=== PATIENT | female | born 1970 | race Caucasian/White ===

== ENCOUNTER 2017-03-29 11:43 | Inpatient (IN) | payer OTHER ==
[~2017-03-29] VITALS: Ht 177.8 cm; Wt 113.1 kg
[2017-03-29 13:41] LABS: HEMATOCRIT 42.2 % (36.0-46.0); MCH 30.2 PG (29.0-34.0); MCHC 32.9 G/DL (30.0-36.0); MCV 91.5 FL (83-99); MEAN PLAT.VOLUME 11.6 uM^3 (9.5-12.4); PLATELET COUNT 178 K/uL (156-360); RBC DIS.WIDTH-CV 13.9 % (11.8-14.6); RBC DIS.WIDTH-SD 46.9 % (39-53); RED BLOOD COUNT 4.61 M/uL (3.80-5.20); WHITE BLOOD COUNT 12.7 K/uL (4.1-10.2)
[2017-03-29 13:43] LABS: ADD MIUA? YES; BILIRUBIN NEGATIVE; BLOOD MODERATE; COLOR STRAW ((YELLOW)); GLUCOSE (STRIP) NEGATIVE; KETONES NEGATIVE; LEUKOCYTES NEGATIVE; NITRITE NEGATIVE; PROTEIN (STRIP) NEGATIVE; SPECIFIC GRAVITY 1.006 (1.000-1.030); UROBILINOGEN 0.2 MG/DL (0.2-1.0)
[2017-03-29 13:51] LABS: BACTERIA NONE SEEN /HPF; EPITHELIAL CELLS 1+ /HPF; MUCUS TRACE /LPF; RED BLOOD CELLS 0-5 /HPF (0-5); WHITE BLOOD CELLS 0-5 /HPF (0-5)
[2017-03-29 13:51] LABS: AMPHETAMINE NEGATIVE (500 ng/mL); BARBITURATES NEGATIVE (200 ng/mL); BENZODIAZEPINES NEGATIVE (150 ng/mL); COCAINE NEGATIVE (150 ng/mL); INTERNAL CONTROLS VALID? YES; METHADONE NEGATIVE (200 ng/mL); METHAMPHETAMINE NEGATIVE (500 ng/mL); OPIATES (MORPHINE) NEGATIVE (100 ng/mL); OXYCODONE NEGATIVE (100 ng/mL); PHENCYCLIDINE NEGATIVE (25 ng/mL); PROPOXYPHENE NEGATIVE (300 ng/mL); THC CANNABINOIDS NEGATIVE (50 ng/mL); TRICYCLIC ANTIDEPRESSANTS NEGATIVE (300 ng/mL)
[2017-03-29 13:55] LABS: CHLORIDE 111 mEq/L (99-109); POTASSIUM 4.3 mEq/L (3.7-5.4); SODIUM 142 mEq/L (136-147)
[2017-03-29 13:57] LABS: GLUCOSE 87 mg/dL (70-99)
[2017-03-29 13:58] LABS: ANION GAP 9 MEQ/L (2-14)
[2017-03-29 13:59] LABS: TOTAL BILIRUBIN 0.3 mg/dL (0.0-1.0)
[2017-03-29 14:00] LABS: ALKALINE PHOSPHATASE 42 IU/L (3-129); SERUM ETHYL ALCOHOL < 10 mg/dL
[2017-03-29 14:01] LABS: GFR ESTIMATE (CALCULATED) > 59 mL/min/
[2017-03-29 14:02] LABS: UREA NITROGEN (BUN) 11 mg/dL (9-23)
[2017-03-29 18:18] VITALS: BP 144/77
[2017-03-29 18:18] LABS: INFLUENZA A VIRAL ANTIGEN NEGATIVE; INFLUENZA B VIRAL ANTIGEN NEGATIVE
[2017-03-29 19:37] VITALS: BP 145/67
[2017-03-29 21:00] VITALS: BP 133/83
[2017-03-30 00:33] VITALS: BP 96/52
[2017-03-30 01:17] VITALS: BP 123/57
[2017-03-30 06:44] LABS: HEMATOCRIT 40.1 % (36.0-46.0); MCH 29.7 PG (29.0-34.0); MCHC 32.2 G/DL (30.0-36.0); MCV 92.2 FL (83-99); MEAN PLAT.VOLUME 11.6 uM^3 (9.5-12.4); PLATELET COUNT 172 K/uL (156-360); RBC DIS.WIDTH-CV 14.1 % (11.8-14.6); RED BLOOD COUNT 4.35 M/uL (3.80-5.20)
[2017-03-30 09:00] VITALS: BP 138/90
[2017-03-30 12:00] VITALS: BP 158/83
== END 2017-03-30 16:26 | disposition left against medical advice (07) | DRG 101 ==
LOC: EME 11:43 → 4EAST 15:41 → EDOF 15:41 → 5SOUTH 18:00 → 4EAST 22:18
PROVIDERS: Emergency Medicine; Internal Medicine
DX: R56.9 Unspecified convulsions (principal); G43.109 Migraine with aura, not intractable, without status migrainosus; F44.9 Dissociative and conversion disorder, unspecified; R55 Syncope and collapse; L53.9 Erythematous condition, unspecified; R42 Dizziness and giddiness; H53.2 Diplopia; R11.0 Nausea; F17.210 Nicotine dependence, cigarettes, uncomplicated; E66.9 Obesity, unspecified; Z68.35 Body mass index [BMI] 35.0-35.9, adult
CPT/HCPCS: 70450; 70551; 71010; 80053; 81003; 85027; 87502; 93005; 93880; 99281; 99285; G0480; J1165; J1953; J2060; J7030; J7050